=== PATIENT | female | born 2000 | race Two or more races ===

== ENCOUNTER 2021-08-12 17:15 | Emergency (ER) | payer MEDICAID ==
[2021-08-12 17:36] VITALS: BP 122/96; PULSE 82
[2021-08-12] MEDS ORDERED: Ketorolac 60 MG/2 ML SDV IM ONE (18:02)
[2021-08-12] MEDS ORDERED: Cyclobenzaprine 10 MG Tab PO ONE (18:02)
== END 2021-08-12 19:45 | disposition home or self-care (01) ==
LOC: JD.ED 17:15
DX: M54.2 Cervicalgia (principal); Z88.0 Allergy status to penicillin
CPT/HCPCS: 36415; 72040; 80053; 83735; 85025; 86140; 96372; 99283; A9270; J1885